=== PATIENT | female | born 1980 | race Caucasian/White ===

== ENCOUNTER 2017-02-25 03:12 | Emergency (ER) | payer OTHER ==
--- NOTE | 2017-02-25 03:14 | EDPHY ---
H & P HPI/ROS: HPI CHIEF COMPLAINT: Left shoulder pain HISTORY OF PRESENT ILLNESS: This patient very pleasant 36-year-old female, otherwise healthy no significant medical history except for depression she presents emergency room after she states that she did adult gymnastics yesterday. States she did a lot a tumbling and a lot of shoulder work. States she woke up approximately 2 hours ago with left shoulder pain worse with left shoulder movement. She took ibuprofen and Independence prior to arrival. The pain is continued to worse with shoulder movement. Especially abduction of the left arm. No focal weakness, no numbness or tingling. No neck pain no headache. No chest pain or shortness of breath. 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 Family History: Noncontributory. ROS REVIEW OF SYSTEMS: A comprehensive 10 point review of systems is otherwise negative aside from elements mentioned in the history of present illness. Exam Constitutional appears well nontoxic, triage nursing summary reviewed, vital signs reviewed, awake/alert. Eyes normal conjunctivae and sclera, EOMI, PERRLA. HENT normal inspection, atraumatic, moist mucus membranes, no epistaxis, neck supple/ no meningismus, no raccoon eyes. Respiratory clear to auscultation bilaterally, normal breath sounds, no respiratory distress, no wheezing. Cardiovascular rate normal, regular rhythm, no murmur, no edema, distal pulses normal. Gastrointestinal soft, non-tender, no rebound, no guarding, normal bowel sounds, no distension, no pulsatile mass. Genitourinary no CVA tenderness. Musculoskeletal left arm: Neurovascular intact. Good radial pulse, good cap refill, good amusement ride operator strength. Tender palpation of the left shoulder with abduction left arm. Axillary nerve intact. He has pain with range of motion but can fully range his shoulder. Supination and pronation of the wrist her hand this gets her left shoulder pain. no midline vertebral tenderness, full range of motion, no calf swelling, no tenderness of extremities, no meningismus , good pulses, neurovascularly intact. Skin pink, warm, & dry, no rash, skin atraumatic. Neurologic awake, alert and oriented x 3, AAOx3, moves all 4 extremities equally, motor intact, sensory intact, CN II-XII intact, normal cerebellar, normal vision, normal speech. Psychiatric normal mood/affect. Heme/Lymph/Immune no lymphadenopathy. Differential Diagnosis: Includes but is not limited to in a particular order: Rotator cuff injury, shoulder strain, fracture, dislocation Medical Decision Making: Plan for this patient x-ray left shoulder, Independence for pain control. Ice pack and sling. Re-evaluation: Exam is consistent with a rotator cuff injury. X-ray reviewed left shoulder. No visible fracture. Updated patient. She has been placed in a sling ice pack pain medicine for pain control. Orthopedic follow-up. She understands. Source: Patient Constitutional: Initial Vital Signs Temperature (C) 36.4 C 02/25/17 03:16 Heart Rate 73 02/25/17 03:16 Respiratory Rate 14 02/25/17 03:16 Blood Pressure 99/72 L 02/25/17 03:16 O2 Sat (%) 97 02/25/17 03:16 O2 Delivery Mode Room Air Allergies/Adverse Reactions: No Known Allergies Allergy (Unverified 02/25/17 03:15) Home Medications: Medication Instructions Recorded Adderall Xr 20 mg Capsule 02/25/17 Hydrocodone/APAP 5/325 [Independence 1 - 2 tab PO Q4H PRN #10 tab 02/25/17 5/325] Ibuprofen [Motrin (*)] 800 mg PO Q6-8PRN #14 tab 02/25/17 Prozac 10 MG (*) 02/25/17 Medical Decision Making - Data Points Medications Given: Discontinued Medications Hydrocodone Bitart/Acetaminophen (Independence 10/325) 1 tab PO EDNOW ONE Stop: 02/25/17 03:31 Last Admin: 02/25/17 03:37 Dose: 1 tab Departure - Departure Disposition: Home, Routine, Self-Care Clinical Impression: Rotator cuff injury Qualifiers: Encounter type: initial encounter Laterality: left Qualified Code(s): S46.002A - Unspecified injury of muscle(s) and tendon(s) of the rotator cuff of left shoulder, initial encounter Condition: Good Instructions: Rotator Cuff Injury (ED) Additional Instructions: 1. Ice your shoulder 2. Stay in your sling for comfort. 3. Take pain medicine as needed for pain control. 4. Return emergency room if you have worsening symptoms questions or concerns. Please call Orthopedics for follow-up appointment. Referrals: TOSHA,CARROL [Other] - As per Instructions Denis Azevedo MD [Medical Doctor] - As per Instructions Prescriptions: Hydrocodone/APAP 5/325 [Independence 5/325] 1 - 2 tab PO Q4H PRN #10 tab PRN Reason: Pain, Moderate Ibuprofen [Motrin (*)] 800 mg PO Q6-8PRN #14 tab
[2017-02-25 03:21] VITALS: BP 99/72; PULSE 73; RESP 14; TEMP 97.5; O2SAT 97
[2017-02-25] MEDS ORDERED: HYDROCODONE/APAP 10/325 TAB PO ONE (03:30)
== END 2017-02-25 04:10 | disposition home or self-care (01) ==
DX: S46.002A Unspecified injury of muscle(s) and tendon(s) of the rotator cuff of left shoulder, initial encounter (principal); X50.9XXA Other and unspecified overexertion or strenuous movements or postures, initial encounter; Y99.8 Other external cause status; Y93.43 Activity, gymnastics
CPT/HCPCS: A4565

== ENCOUNTER 2018-03-13 11:02 | Emergency (ER) | payer OTHER ==
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
[2018-03-13 12:46] VITALS: BP 108/74
[2018-03-13] MEDS ORDERED: IBUPROFEN 600 MG TAB PO ONE (12:46)
== END 2018-03-13 13:15 | disposition home or self-care (01) ==
DX: S06.0X0A Concussion without loss of consciousness, initial encounter (principal); S16.1XXA Strain of muscle, fascia and tendon at neck level, initial encounter; V43.52XA Car driver injured in collision with other type car in traffic accident, initial encounter; Y92.410 Unspecified street and highway as the place of occurrence of the external cause; Y99.8 Other external cause status; R40.2412 Glasgow coma scale score 13-15, at arrival to emergency department

== ENCOUNTER 2018-03-15 10:08 | Emergency (ER) | payer OTHER ==
[2018-03-15] MEDS ORDERED: NS 1,000 ML IV ONE (10:50)
[2018-03-15] MEDS ORDERED: HALOPERIDOL LACT 5 MG/ML INJ IVP ONE (10:50)
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
[2018-03-15] MEDS ORDERED: IOPAMIDOL (ISOVUE 370) 100 ML BTL IV ONE (11:55)
[2018-03-15 13:25] VITALS: BP 114/76
== END 2018-03-15 13:22 | disposition home or self-care (01) ==
DX: R51 Headache (principal); S06.0X0D Concussion without loss of consciousness, subsequent encounter; V43.52XD Car driver injured in collision with other type car in traffic accident, subsequent encounter; R29.818 Other symptoms and signs involving the nervous system; E86.9 Volume depletion, unspecified
CPT/HCPCS: 96374; J1200; J1630; Q9967

== ENCOUNTER → 2018-10-16 | Outpatient (CLI) | payer OTHER | LOC: BMCIMAGING 12:08 | PROVIDERS: ATTEND Family Medicine | DX: S90.32XD Contusion of left foot, subsequent encounter (principal) ==